=== PATIENT | female | born 1960 | race Caucasian/White ===

== ENCOUNTER 2019-06-25 16:48 | Emergency (ER) | payer BC, OTHER ==
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
[2019-06-25 19:58] VITALS: BP 139/81
== END 2019-06-25 20:07 | disposition home or self-care (01) ==
LOC: ED 16:48
DX: M54.2 Cervicalgia (principal); M25.512 Pain in left shoulder; V49.40XA Driver injured in collision with unspecified motor vehicles in traffic accident, initial encounter; Y92.410 Unspecified street and highway as the place of occurrence of the external cause; M19.012 Primary osteoarthritis, left shoulder; K21.9 Gastro-esophageal reflux disease without esophagitis; F32.9 Major depressive disorder, single episode, unspecified; F17.210 Nicotine dependence, cigarettes, uncomplicated; Z79.899 Other long term (current) drug therapy; Z88.8 Allergy status to other drugs, medicaments and biological substances
CPT/HCPCS: 70450; 71046; 72125; 99282

== ENCOUNTER 2020-02-14 13:15 | Day surgery (SDC) | payer BC ==
[~2020-02-14 13:15] MED LIST: Buffered Lidocaine 1% SYRIN 1 ml INTRADERM ONE; Famotidine IV 10 MG/ML 2 ml VIAL (20 mg) IV ONE; Lactated Ringers 1000 ml BAG 1,000 ML IV SCH
[2020-02-14 13:48] VITALS: BP 161/90
[2020-02-14] MEDS ORDERED: Bupivacaine 0.25% SDV 30 ML ONE (13:48)
== END 2020-02-14 15:36 | disposition home or self-care (01) ==
LOC: OR 13:15
PROVIDERS: ATTEND Orthopaedic Surgery Hand Surgery

== ENCOUNTER 2021-08-27 06:01 | Inpatient (IN) ==
[~2021-08-27 06:01] MED LIST changes: +DiMENhydriNATE IV 50 mg/ml 1 ml VIAL IV PUSH ONE; -Famotidine IV 10 MG/ML 2 ml VIAL (20 mg) IV ONE; +HYDROcodone/ACETAMIN 5/325 mg TAB PO PRN; +Metoclopramide 5 MG/ML VIAL (10 mg) IV PRN; +Naloxone 0.4 mg VIAL 0.4 mg/ml 1 ml VIAL IV PRN; +Ondansetron 4 mg VIAL 2 MG/ML 2 ml VIAL IV PRN; +fentaNYL 100 mcg/2 ml 50 MCG/ML VIAL IV PRN
[2021-08-27] MEDS ORDERED: Midazolam 2 mg/2 ml VIAL 1 mg/ml 2 ml VIAL (2 mg) ONE (06:36)
[2021-08-27] MEDS ORDERED: Lidocaine 2% PF 5 ML VIAL ONE (06:36)
[2021-08-27] MEDS ORDERED: fentaNYL 250 mcg/5 ml 50 MCG/ML 5 ml VIAL (250 MCG) ONE ×2 (06:36→08:43)
[2021-08-27] MEDS ORDERED: Dexamethasone IV 4 MG/ML VIAL 1 ml VIAL ONE (06:36)
[2021-08-27] MEDS ORDERED: Propofol 10 MG/ML 20 ML BTL ONE (06:36)
[2021-08-27] MEDS ORDERED: Ondansetron 4 mg VIAL 2 MG/ML 2 ml VIAL ONE (06:36)
[2021-08-27] MEDS ORDERED: Rocuronium 50 mg VIAL 10 mg/ml 5 ml VIAL (50 mg) ONE ×3 (06:48→09:57)
[2021-08-27] MEDS ORDERED: DiMENhydriNATE IV 50 mg/ml 1 ml VIAL ONE (06:55)
[2021-08-27] MEDS ORDERED: Heparin 5000 UNITS/ML 1 mL VIAL ONE (06:55)
[2021-08-27] MEDS ORDERED: ceFAZolin 2 GM in NS PREMIX 2 GM/100 ML BAG IVPB ONE (06:55)
[2021-08-27] MEDS ORDERED: Bupivacaine 0.5% SDV PF 30ML VIAL ONE ×2 (07:08→11:34)
[2021-08-27] MEDS ORDERED: diPHENhydraMINE IV 50 MG/ML 1 ml VIAL (BENADRYL) ONE (08:04)
[2021-08-27] MEDS ORDERED: Sterile Water for Inj 10 ML ONE (08:13)
[2021-08-27] MEDS ORDERED: EPHEDrine (Pressors) 50 MG/ML VIAL ONE (08:13)
[2021-08-27] MEDS ORDERED: HYDROmorphone 1 MG/1 ML SYRINGE ONE (08:43)
[2021-08-27] MEDS ORDERED: Sevoflurane BOTTLE ONE (10:17)
[2021-08-27] MEDS ORDERED: fentaNYL 100 mcg/2 ml 50 MCG/ML VIAL ONE ×2 (13:11→15:40)
[2021-08-27] MEDS ORDERED: Benzocaine/Menthol LOZ PO PRN (13:39)
[2021-08-27] MEDS ORDERED: Morphine 2 MG/ML SYRINGE IV PRN (13:40)
[2021-08-27] MEDS ORDERED: Heparin 5000 UNITS/ML 1 mL VIAL SUBCUT SCH (14:00)
[2021-08-27] MEDS ORDERED: HYDROcodone/ACETAMIN 5/325 mg TAB ONE (15:40)
[2021-08-27] MEDS: ceFAZolin 2 GM in NS PREMIX 2 GM/100 ML BAG IVPB SCH (17:51)
[2021-08-27] MEDS: HYDROcodone/ACETAMIN 5/325 mg TAB PO PRN (21:21)
[2021-08-28] MEDS: ceFAZolin 2 GM in NS PREMIX 2 GM/100 ML BAG IVPB SCH ×3 (02:09→16:01)
[2021-08-28] MEDS: HYDROcodone/ACETAMIN 5/325 mg TAB PO PRN ×2 (08:18→16:01)
[2021-08-28 16:04] VITALS: BP 139/67
[2021-08-30] MEDS ORDERED: Scopolamine PATCH Remove NOTE PATCH OFF SCH (17:00)
== END 2021-08-28 18:50 | disposition home or self-care (01) | DRG 362 ==
LOC: SSU 06:01 → OR 06:01
PROVIDERS: ADMIT Student in an Organized Health Care Education/Training Program; ATTEND Student in an Organized Health Care Education/Training Program

== ENCOUNTER 2022-02-24 16:12 | Inpatient (IN) ==
[2022-02-24] MEDS ORDERED: cefTRIAXone 2 gm/50 mL D5W 2 GM/50 ML BAG IV ONE (17:18)
[2022-02-24] MEDS ORDERED: NS 0.9% 1000 ml BAG 1,000 ML IV ONE (17:44)
[2022-02-24] MEDS ORDERED: Vancomycin 1,500 MG in NS 0.9% 250 ml 250 ML IVPB SCH (18:00)
[2022-02-24 18:40] LABS: ABS Eosinophils 0.1 10^3/ul (0-0.6); ABS Lymphocytes 0.4 10^3/ul (1.0-4.8); ABS Monocytes 0.3 10^3/ul (0-0.8); ABS Neutrophils 2.5 10^3/ul (1.5-7.7); Eosinophil % 2.2 %; Hematocrit 33 % (35-47); Hemoglobin 11.6 g/dL (12.0-16.0); Lymphocyte % 12.7 %; Mean Corpuscular HGB Conc 35 g/dL (31-36); Mean Corpuscular Hemoglobin 37 pg (27-31); Mean Corpuscular Volume 107 fL (80-97); Mean Platelet Volume 6.9 fL (7.4-10.4); Platelet Count 220 10^3/uL (150-450); Red Blood Count 3.12 10^6 /uL (3.70-4.87); Red Cell Distribution Width 15 % (10-15); White Blood Count 3.4 10^3/uL (3.5-10.8)
[2022-02-24 18:56] LABS: INR 1.04 (0.86-1.15)
[2022-02-24] MEDS ORDERED: oxyCODONE/Acetamin 5/325 mg TAB PO ONE (19:13)
[2022-02-24 19:59] LABS: Albumin 4.4 g/dL (3.2-5.2); Albumin/Globulin Ratio 1.6 (1-3); C Reactive Protein 105.18 mg/L (<8.01); Calcium 9.7 mg/dL (8.6-10.3); Globulin 2.8 g/dL (2-4); Potassium 3.9 mmol/L (3.5-5.0); Total Bilirubin 0.7 mg/dL (0.2-1.0); Total Protein 7.2 g/dL (6.4-8.9); eGFR CKD-EPI 80.3 (>60)
[2022-02-24 20:02] LABS: eGFR CKD-EPI 81.5 (>60)
[2022-02-24] MEDS ORDERED: HYDROcodone/ACETAMIN 5/325 mg TAB PO PRN (21:08)
[2022-02-25] MEDS: Heparin 5000 UNITS/ML 1 mL VIAL SUBCUT SCH ×4 (00:03→20:06)
[2022-02-25] MEDS: ABEMACICLIB 150 MG PO SCH ×2 (09:19→20:06)
[2022-02-25] MEDS: DULoxetine DR 20 mg CAP PO SCH (09:20)
[2022-02-25] MEDS: ANASTROZOLE 1 MG PO SCH (09:20)
[2022-02-25] MEDS: DIRECTIONS PO SCH (09:21)
[2022-02-25] MEDS: COENZYME Q10 ENTER STREGNTH PO SCH (09:21)
[2022-02-25] MEDS ORDERED: Vancomycin 1,000 MG in NS 0.9% 250 ml 250 ML IVPB SCH (10:00)
[2022-02-25] MEDS ORDERED: Vancomycin per Pharmacy 1 EA NOTE FOLLOW UP PRN (13:43)
[2022-02-25 14:35] LABS: ABS Basophils 0.1 10^3/ul (0-0.2); ABS Eosinophils 0.1 10^3/ul (0-0.6); ABS Lymphocytes 0.3 10^3/ul (1.0-4.8); ABS Monocytes 0.3 10^3/ul (0-0.8); ABS Neutrophils 1.5 10^3/ul (1.5-7.7); Eosinophil % 5.5 %; Hematocrit 30 % (35-47); Hemoglobin 10.4 g/dL (12.0-16.0); Lymphocyte % 14.8 %; Mean Corpuscular HGB Conc 35 g/dL (31-36); Mean Corpuscular Hemoglobin 37 pg (27-31); Mean Corpuscular Volume 106 fL (80-97); Nucleated Red Blood Cells % 0.1; Platelet Count 207 10^3/uL (150-450); Red Blood Count 2.81 10^6 /uL (3.70-4.87); Red Cell Distribution Width 15 % (10-15); White Blood Count 2.4 10^3/uL (3.5-10.8)
[2022-02-25] MEDS: Vancomycin 1000 MG in NS 0.9% 250 ML IVPB SCH (15:11)
[2022-02-25 15:12] LABS: Albumin 3.8 g/dL (3.2-5.2); Globulin 2.4 g/dL (2-4); Potassium 3.9 mmol/L (3.5-5.0); Total Protein 6.2 g/dL (6.4-8.9); eGFR CKD-EPI 82.7 (>60)
[2022-02-25 15:13] LABS: Albumin/Globulin Ratio 1.6 (1-3); C Reactive Protein 75.54 mg/L (<8.01); Total Bilirubin 0.5 mg/dL (0.2-1.0)
[2022-02-25] MEDS ORDERED: cefTRIAXone 1 gm/50 mL D5W 1 GM/50 ML BAG IV SCH (18:30)
[2022-02-26] MEDS: Vancomycin 1000 MG in NS 0.9% 250 ML IVPB SCH (01:52)
[2022-02-26 06:25] LABS: ABS Basophils 0.1 10^3/ul (0-0.2); ABS Eosinophils 0.2 10^3/ul (0-0.6); ABS Lymphocytes 0.3 10^3/ul (1.0-4.8); ABS Monocytes 0.2 10^3/ul (0-0.8); ABS Neutrophils 1.2 10^3/ul (1.5-7.7); Eosinophil % 8.3 %; Hematocrit 28 % (35-47); Hemoglobin 9.9 g/dL (12.0-16.0); Mean Corpuscular HGB Conc 36 g/dL (31-36); Mean Corpuscular Hemoglobin 38 pg (27-31); Mean Corpuscular Volume 106 fL (80-97); Mean Platelet Volume 7.1 fL (7.4-10.4); Nucleated Red Blood Cells % 0.1; Platelet Count 190 10^3/uL (150-450); Red Blood Count 2.62 10^6 /uL (3.70-4.87); Red Cell Distribution Width 15 % (10-15)
[2022-02-26] MEDS: Heparin 5000 UNITS/ML 1 mL VIAL SUBCUT SCH (06:26)
[2022-02-26 06:37] LABS: Albumin 3.3 g/dL (3.2-5.2); Albumin/Globulin Ratio 1.3 (1-3); C Reactive Protein 54.67 mg/L (<8.01); Calcium 8.8 mg/dL (8.6-10.3); Globulin 2.5 g/dL (2-4); Potassium 3.7 mmol/L (3.5-5.0); Total Bilirubin 0.4 mg/dL (0.2-1.0); Total Protein 5.8 g/dL (6.4-8.9); eGFR CKD-EPI 92.3 (>60)
[2022-02-26] MEDS ORDERED: Cholecalciferol (VIT D3) 1,000 unit TAB PO SCH (09:00)
[2022-02-26] MEDS: ANASTROZOLE 1 MG PO SCH (09:15)
[2022-02-26] MEDS: DULoxetine DR 20 mg CAP PO SCH (09:16)
[2022-02-26] MEDS: ABEMACICLIB 150 MG PO SCH (09:48)
[2022-02-26] MEDS: DIRECTIONS PO SCH (10:29)
[2022-02-26] MEDS: COENZYME Q10 ENTER STREGNTH PO SCH (10:29)
[2022-02-26 10:54] VITALS: BP 124/61
[2022-02-27] MEDS ORDERED: Vancomycin Trough Check NOTE FOLLOW UP ONE (13:30)
== END 2022-02-26 14:25 | disposition home or self-care (01) | DRG 383 ==
LOC: ED 16:12 → EDHOLD 17:37 → SSU 19:31
PROVIDERS: ADMIT Student in an Organized Health Care Education/Training Program; ATTEND Student in an Organized Health Care Education/Training Program

== ENCOUNTER 2022-09-17 10:27 | Inpatient (IN) ==
[~2022-09-17 10:27] MED LIST changes: +Bupivacaine 0.25% SDV 30 ML ONE; -DiMENhydriNATE IV 50 mg/ml 1 ml VIAL IV PUSH ONE; +Famotidine IV 10 MG/ML 2 ml VIAL (20 mg) IV ONE; -HYDROcodone/ACETAMIN 5/325 mg TAB PO PRN; +Methylene Blue 0.5 % 50 MG/10 ML AMP IV ONE; -Metoclopramide 5 MG/ML VIAL (10 mg) IV PRN; -Naloxone 0.4 mg VIAL 0.4 mg/ml 1 ml VIAL IV PRN; -Ondansetron 4 mg VIAL 2 MG/ML 2 ml VIAL IV PRN; -fentaNYL 100 mcg/2 ml 50 MCG/ML VIAL IV PRN
[2022-09-17] MEDS ORDERED: Ondansetron 4 mg VIAL 2 MG/ML 2 ml VIAL ONE ×2 (10:50→17:47)
[2022-09-17] MEDS ORDERED: Famotidine IV 10 MG/ML 2 ml VIAL (20 mg) ONE (10:50)
[2022-09-17] MEDS ORDERED: Dexamethasone IV 4 MG/ML VIAL 1 ml VIAL ONE (10:50)
[2022-09-17] MEDS ORDERED: ceFAZolin 2 GM PREMIX 2 GM/50 ML BAG ONE (10:50)
[2022-09-17] MEDS ORDERED: Scopolamine 1 mg/72hr PATCH ONE (10:50)
[2022-09-17] MEDS ORDERED: Heparin 5000 UNITS/ML 1 mL VIAL ONE (10:50)
[2022-09-17] MEDS ORDERED: Lidocaine 2% PF 5 ML VIAL ONE (11:24)
[2022-09-17] MEDS ORDERED: Propofol 10 MG/ML 20 ML BTL ONE (11:24)
[2022-09-17] MEDS ORDERED: Rocuronium 50 mg VIAL 10 mg/ml 5 ml VIAL (50 mg) ONE (11:25)
[2022-09-17] MEDS ORDERED: Midazolam 2 mg/2 ml VIAL 1 mg/ml 2 ml VIAL (2 mg) ONE (11:28)
[2022-09-17] MEDS ORDERED: fentaNYL 250 mcg/5 ml 50 MCG/ML 5 ml VIAL (250 MCG) ONE (11:28)
[2022-09-17] MEDS ORDERED: Bupivacaine 0.25% SDV 30 ML ONE (11:51)
[2022-09-17] MEDS ORDERED: Morphine 4 MG/ML VIAL (1 ml) IV PRN (11:55)
[2022-09-17] MEDS ORDERED: Naloxone 0.4 mg VIAL 0.4 mg/ml 1 ml VIAL IV PRN (11:55)
[2022-09-17] MEDS ORDERED: fentaNYL 100 mcg/2 ml 50 MCG/ML VIAL IV PRN (11:55)
[2022-09-17] MEDS ORDERED: Prochlorperazine 5 mg/ml 2 ml VIAL (10 mg) IV PRN (11:55)
[2022-09-17] MEDS ORDERED: HYDROmorphone 0.5 MG/0.5 ML SYRINGE ONE ×2 (13:12→14:26)
[2022-09-17] MEDS ORDERED: ceFAZolin VIAL VIAL ONE (16:01)
[2022-09-17] MEDS ORDERED: Mineral Oil Sterile, TOPICAL 25 ML BTL ONE ×2 (17:06→17:32)
[2022-09-17] MEDS ORDERED: fentaNYL 100 mcg/2 ml 50 MCG/ML VIAL ONE (17:36)
[2022-09-17] MEDS ORDERED: Ondansetron 4 mg VIAL 2 MG/ML 2 ml VIAL IV PRN (19:57)
[2022-09-17] MEDS ORDERED: Al Hydrox/Mg Hydrox/Simet LIQ 30 ML UDC PO PRN (19:57)
[2022-09-17] MEDS ORDERED: Magnesium Hydroxide LIQ 30 ML UDC PO PRN (19:58)
[2022-09-17] MEDS: NS 0.9% 1,000 ML IV SCH (20:46)
[2022-09-17] MEDS: HYDROcodone/ACETAMIN 5/325 mg TAB PO PRN (22:24)
[2022-09-17] MEDS: Heparin 5000 UNITS/ML 1 mL VIAL SUBCUT SCH (22:25)
[2022-09-17] MEDS: HYDROmorphone 1 MG/1 ML SYRINGE IV PRN (23:35)
[2022-09-18] MEDS ORDERED: ceFAZolin 1 GM in Dextrose 1 GM/50 ML BAG IVPB SCH (00:30)
[2022-09-18] MEDS: ceFAZolin 1 GM Q8H (ADVAN) IVPB SCH ×3 (00:50→16:00)
[2022-09-18] MEDS: HYDROmorphone 1 MG/1 ML SYRINGE IV PRN ×3 (03:13→13:34)
[2022-09-18] MEDS: Heparin 5000 UNITS/ML 1 mL VIAL SUBCUT SCH ×3 (06:32→20:03)
[2022-09-18] MEDS: HYDROcodone/ACETAMIN 5/325 mg TAB PO PRN ×2 (06:32→20:03)
[2022-09-18 06:50] LABS: ABS Lymphocytes 0.6 10^3/ul (1.0-4.8); ABS Monocytes 0.4 10^3/ul (0-0.8); ABS Neutrophils 6.1 10^3/ul (1.5-7.7); Hematocrit 33 % (35-47); Hemoglobin 10.9 g/dL (12.0-16.0); Lymphocyte % 8.6 %; Mean Corpuscular HGB Conc 33 g/dL (31-36); Mean Corpuscular Hemoglobin 32 pg (27-31); Mean Corpuscular Volume 97 fL (80-97); Platelet Count 317 10^3/uL (150-450); Red Blood Count 3.37 10^6 /uL (3.70-4.87); Red Cell Distribution Width 16 % (10-15); White Blood Count 7.1 10^3/uL (3.5-10.8)
[2022-09-18] MEDS: NS 0.9% 1,000 ML IV SCH (08:03)
[2022-09-18] MEDS: Vitamin THERAPEUTIC TAB PO SCH (08:09)
[2022-09-18] MEDS: DULoxetine DR 30 mg CAP PO SCH (08:10)
[2022-09-18] MEDS: Cholecalciferol (VIT D3) 1,000 unit TAB PO SCH (08:10)
[2022-09-18] MEDS: Polyethylene Glycol 3350 17 GM PACKET PO SCH (08:12)
[2022-09-18] MEDS: COENZYME Q10 200 MG PO SCH (12:56)
[2022-09-18] MEDS: EXEMESTANE 25 MG PO SCH (12:57)
[2022-09-19] MEDS: ceFAZolin 1 GM Q8H (ADVAN) IVPB SCH ×3 (02:11→15:51)
[2022-09-19] MEDS: HYDROcodone/ACETAMIN 5/325 mg TAB PO PRN ×2 (02:47→14:56)
[2022-09-19] MEDS: Heparin 5000 UNITS/ML 1 mL VIAL SUBCUT SCH ×3 (06:42→21:26)
[2022-09-19] MEDS: HYDROmorphone 1 MG/1 ML SYRINGE IV PRN ×2 (10:22→21:26)
[2022-09-19] MEDS: EXEMESTANE 25 MG PO SCH (10:23)
[2022-09-19] MEDS: COENZYME Q10 200 MG PO SCH (10:24)
[2022-09-19] MEDS: DULoxetine DR 30 mg CAP PO SCH (10:25)
[2022-09-19] MEDS: Cholecalciferol (VIT D3) 1,000 unit TAB PO SCH (10:25)
[2022-09-19] MEDS: Vitamin THERAPEUTIC TAB PO SCH (10:26)
[2022-09-19] MEDS: Polyethylene Glycol 3350 17 GM PACKET PO SCH (10:28)
[2022-09-20] MEDS: ceFAZolin 1 GM Q8H (ADVAN) IVPB SCH ×3 (00:13→17:04)
[2022-09-20] MEDS: HYDROcodone/ACETAMIN 5/325 mg TAB PO PRN ×3 (00:14→13:36)
[2022-09-20] MEDS: Heparin 5000 UNITS/ML 1 mL VIAL SUBCUT SCH ×3 (05:18→21:31)
[2022-09-20] MEDS: Polyethylene Glycol 3350 17 GM PACKET PO SCH (09:26)
[2022-09-20] MEDS: COENZYME Q10 200 MG PO SCH (09:26)
[2022-09-20] MEDS: EXEMESTANE 25 MG PO SCH (09:26)
[2022-09-20] MEDS: Vitamin THERAPEUTIC TAB PO SCH (09:27)
[2022-09-20] MEDS: DULoxetine DR 30 mg CAP PO SCH (09:27)
[2022-09-20] MEDS: Cholecalciferol (VIT D3) 1,000 unit TAB PO SCH (09:27)
[2022-09-20] MEDS: HYDROmorphone 1 MG/1 ML SYRINGE IV PRN (16:29)
[2022-09-21] MEDS: HYDROcodone/ACETAMIN 5/325 mg TAB PO PRN ×3 (00:57→16:55)
[2022-09-21] MEDS: ceFAZolin 1 GM Q8H (ADVAN) IVPB SCH ×3 (00:58→16:50)
[2022-09-21] MEDS: Heparin 5000 UNITS/ML 1 mL VIAL SUBCUT SCH ×2 (06:07→13:48)
[2022-09-21] MEDS: Polyethylene Glycol 3350 17 GM PACKET PO SCH (08:33)
[2022-09-21] MEDS: COENZYME Q10 200 MG PO SCH (08:34)
[2022-09-21] MEDS: EXEMESTANE 25 MG PO SCH (08:34)
[2022-09-21] MEDS: DULoxetine DR 30 mg CAP PO SCH (08:35)
[2022-09-21] MEDS: Vitamin THERAPEUTIC TAB PO SCH (08:35)
[2022-09-21] MEDS: Cholecalciferol (VIT D3) 1,000 unit TAB PO SCH (08:35)
[2022-09-21 11:52] VITALS: BP 122/75
[2022-09-21] MEDS: HYDROmorphone 1 MG/1 ML SYRINGE IV PRN (16:15)
== END 2022-09-21 18:30 | disposition home or self-care (01) | DRG 791 ==
LOC: OR 10:27 → SSU 10:27 → OBSVTOIN 20:08
PROVIDERS: ADMIT Plastic Surgery; ATTEND Plastic Surgery